=== PATIENT | female | born 1990 | race Caucasian/White ===

== ENCOUNTER 2017-12-10 17:56 | Emergency (ER) | payer BC ==
--- NOTE | 2017-12-10 19:14 | ED ---
Laceration/Wound HPI - HPI Summary HPI Summary: 27-year-old female presents with laceration to right wrist. She states she cut it on some glass. She denies any foreign body. Tetanus up-to-date. No active bleeding. Has full range of motion wrist. No numbness or tingling. No other injury. No medical conditions. - History of Current Complaint Stated Complaint: LAC ON RT WRIST Time Seen by Provider: 12/10/17 18:25 Pain Intensity: 0 - Allergy/Home Medications Allergies/Adverse Reactions: Allergies Allergy/AdvReac Type Severity Reaction Status Date / Time No Known Allergies Allergy Verified 12/10/17 18:23 PMH/Surg Hx/FS Hx/Imm Hx Endocrine/Hematology History: Denies: Hx Anticoagulant Therapy Cardiovascular History: Denies: Hx Hypertension Infectious Disease History: No Infectious Disease History: Denies: Traveled Outside the [place] in Last 30 Days - Family History Known Family History: Negative: Diabetes - Social History Alcohol Use: None Substance Use Type: Reports: None Smoking Status (MU): Never Smoked Tobacco Review of Systems Negative: Fever Negative: Chest Pain Negative: Shortness Of Breath Positive: Other - laceration right wrist All Other Systems Reviewed And Are Negative: Yes Physical Exam Triage Information Reviewed: Yes Vital Signs On Initial Exam: Initial Vitals Temp Pulse Resp BP Pulse Ox 97.7 F 64 16 118/64 99 12/10/17 18:18 12/10/17 18:18 12/10/17 18:18 12/10/17 18:18 12/10/17 18:18 Vital Signs Reviewed: Yes Appearance: Positive: Well-Appearing Skin: Positive: Warm, Dry, Other - 2cm by 1/2cm Head/Face: Positive: Normal Head/Face Inspection Eyes: Positive: Normal, Conjunctiva Clear Respiratory/Lung Sounds: Positive: Clear to Auscultation, Breath Sounds Present Cardiovascular: Positive: Normal, RRR Musculoskeletal: Positive: Strength/ROM Intact - right wrist, Other - good pulses, capillary refill<2 secs Neurological: Positive: Normal Psychiatric: Positive: Normal Procedures - Laceration/Wound Repair 1 Location: Other - right wrist Description: Linear Length, Depth and Shape: 2cm by 1/2cm Irrigated w/ Saline (ccs): 100 Laceration/Wound Explored: no foreign body removed Closure: Single Layer Suture Type: Prolene - 4-0 Number of Sutures: 2 Layer Closure?: No Sterile Dressing Applied?: No - neosporin and telfa Diagnostics - Vital Signs Vital Signs Temp Pulse Resp BP Pulse Ox 12/10/17 18:18 97.7 F 64 16 118/64 99 - Laboratory Lab Statement: Any lab studies that have been ordered have been reviewed, and results considered in the medical decision making process. Laceration Repair Course/Dx - Course Course Of Treatment: 27-year-old female presents with laceration to right wrist. She states she cut it on some glass. She denies any foreign body. Tetanus up-to-date. No active bleeding. Has full range of motion wrist. No numbness or tingling. No other injury. No medical conditions. On exam has 2 cm by half cm laceration of right wrist. Neurovascular intact. Cleaned area and place 2 sutures. Told to return develop any signs of infection. Patient understands agrees plan. - Differential Dx Differental Diagnoses: Abrasion, Avulsion, Laceration - Clinical Impression Provider Diagnoses: Laceration of right wrist Discharge - Sign-Out/Discharge Documenting (check all that apply): Discharge/Admit/Transfer - Discharge Plan Condition: Good Disposition: HOME Patient Education Materials: Care For Your Stitches (ED) Referrals: Nilam Ray MD [Primary Care Provider] - Additional Instructions: Take Tylenol or ibuprofen for pain Keep area clean and dry for 24 hours Return to ED or primary in 10-14 days to have sutures removed Return to ED if develop signs of infection such as fever, spreading redness, or pus. - Billing Disposition and Condition Condition: GOOD Disposition: Home
[2017-12-10 19:45] VITALS: BP 118/61
== END 2017-12-10 19:40 | disposition home or self-care (01) ==
LOC: ED 17:56
DX: S61.511A Laceration without foreign body of right wrist, initial encounter (principal); W25.XXXA Contact with sharp glass, initial encounter; Y92.9 Unspecified place or not applicable
CPT/HCPCS: 12001; 99282